=== PATIENT | female | born 1950 | race Caucasian/White ===

== ENCOUNTER 2019-04-30 10:46 | Emergency (ER) | payer MEDICARE, OTHER ==
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
--- NOTE | 2019-04-30 11:30 | Diagnostic Imaging Report ---
PATIENT MR#: [id number] PATIENT PATIENT NAME: TIFFANIE WEBBER) DATE OF : 1950 REFERRING PHYSICIAN: Carissa Street EXAM DATE: 04/30/2019 ACCESSION NUMBER: [id number] EXAM DESCRIPTION: KNEE 3 VIEWS Exam: right KNEE 3 VIEWS Indication: ORDER STATES RT KNEE PAIN (Hx) / Note time : 04/30/2019 11:16:20 AM User : Albert Cha ORDER STATES RT KNEE PAIN ------ (DICOM Hx) (DICOM Hx) Findings: 3 views of the right knee demonstrate osteoarthritis with medial femorotibial and patellofemoral join t space narrowing. There is bony demineralization. There is spurring off the medial and lateral femoral condyle and medi al tibial plateau and posterior articular surface of the patella. There is no acute fracture or subluxation. Impression: Osteoarthritis Read by: Dr. Sunny Solis Transcribed by: Transcribed Date: Electronically signed by: Dr. Sunny Solis Date signed: 04/30/2019 11:29:38 AM
[2019-04-30 12:03] VITALS: BP 138/78
== END 2019-04-30 11:20 | disposition home or self-care (01) ==
LOC: ED 10:46
DX: M25.561 Pain in right knee (principal)
CPT/HCPCS: 73562; 99282